=== PATIENT | female | born 1995 | race Caucasian/White ===

== ENCOUNTER 2016-09-13 15:19 | Emergency (ER) | payer OTHER ==
[~2016-09-13] VITALS: Wt 70.0 kg
[~2016-09-13 15:19] MED LIST: PRENAT PO
[2016-09-13] MEDS ORDERED: ALBUTEROL 0.5% (NEB) 2.5 MG/0.5 ML AMP HHN STA (16:19)
--- NOTE | 2016-09-13 16:28 | ERD ---
ER Documentation Chief Complaint Date/Time DATE: 09/13/16 TIME: 16:21 Chief Complaint SOB X 1 DAY HPI 21 y/o female presents to ED for shortness of breath for 1 day. Non-productive cough for about 4 days. Exposed to his 2-month-old baby boy who has cough and cold. Denies headache, loss of consciousness, dizziness, blurry vision, changes in vision, photophobia, facial pain, ear pain, throat pain, difficulty swallowing, neck pain, shoulder pain, chest pain, hemoptysis, abdominal pain, back pain, loss of appetite, nausea, vomiting, hematochezia, diarrhea, constipation, urinary symptoms, , the possibility of being , bladder and bowel incontinences, extremity weakness, extremity tenderness, numbness or tingling sensation, difficulty walking, recent travel, recent antibiotic use in the last 3 months, fever, chills. Allergy: NKA PMH: "Hypertension during the ." Family medical history: Denies AO LMP: "I am on it." Medications: Denies Surgery: Denies Primary Social History: Not working at this time. Occasionally drinks alcoholic beverages. Denies smoking, use of illegal drugs. ROS All systems reviewed and are negative except as per history of present illness. Medications Home Meds Active Scripts Albuterol Sulfate* (Proair HFA*) 8.5 Gm Hfa.aer.ad, 2 PUFF INH Q4 Y for SHORTNESS OF BREATH, #1 INHALER Prov:BISMARKGALINAKEVINJUANCARLOS Hair 09/13/16 Azithromycin* (Zithromax*) 250 Mg Tablet, 250 MG PO .ZPACK DIRECTED, #6 TAB TAKE 500 MG (2 TABS) THE FIRST DAY THEN 250 MG (1 TAB) DAYS 2-5 Prov:BISMARKGALINAKEVINJUANCARLOS F 09/13/16 Reported Medications Multivit/Min/Fol Ac/Iron/Pren* ( S*) Unknown Strength Tab, PO DAILY, TAB 12/24/15 Allergies Allergies: Coded Allergies: No Known Allergy (Unverified , 05/22/16) PMhx/Soc Denies Medical and Surgical Hx: pt denies Medical Hx, pt denies Surgical Hx Hx Alcohol Use: Yes Hx Substance Use: No Hx Tobacco Use: No FmHx Denies Physical Exam Vitals Vital Signs Date Time Temp Pulse Resp B/P Pulse Ox O2 Delivery O2 Flow Rate FiO2 1/22/17 18:10 98.4 125 18 134/86 100 Room Air 09/13/16 16:37 80 18 96 21 09/13/16 15:24 98.0 121 20 138/87 99 Physical Exam CONSTITUTIONAL: Well-appearing; well-nourished; in no apparent distress. HEAD: Normocephalic; atraumatic. EYES: Conjunctiva clear, sclera non-icteric, EOM intact. PERRL Ears: Hearing intact. EACs clear, TMs non-bulging, non-inflamed, translucent & mobile, ossicles normal appearance, No obstructions, no erythema, no discharges Nose: No obstructions. No polyps. No external lesions. Mucosa non-inflamed. No external lesions, septum and turbinates normal. No rhinorrhea. No discharges. Frontal sinus is non-tender to palpation. Maxillary sinus is non-tender to palpation. MOUTH: Moist mucous membranes, no lesion, no obstructions, no vesicles, no thrush, patent airway Throat: Uvula in midline. Right tonsil is +1 with no erythema, no exudate. Left tonsil is +1 with no erythema, no exudate. Tolerating secretions well. Good gag reflex. Patent airway. Neck: Supple, without lesions, bruits, or adenopathy. No mass. Thyroid non- enlarged and non-tender to palpation. CHEST: Symmetrical chest. Respirations even and not labored. No retractions noted. CARDIOVASCULAR: Normal S1, S2. RRR. No murmurs, gallops. RESPIRATORY: Normal chest excursion with respiration; breath sounds has mild wheezing bilaterally. No rhonchi. No rales. Breathing even and unlabored. Speaking in clear, full, and complete sentences w/ ease. ABDOMEN: Normal bowel sounds normal. Soft, round, non-distended, non-guarding, no tenderness, no rebound, no organomegaly, no masses, no pulsating abdominal mass. No hernia. No peritoneal signs. : No CVA tenderness. BACK: Symmetrical shoulder. Spine is midline without deformity, tenderness. No evidence of trauma or deformity. PELVIS: Stable pelvis. No evidence of trauma or deformity. MUSCULOSKELETAL: Normal gait and station. No misalignment, asymmetry, crepitation, defects, tenderness, masses, effusions, decreased range of motion, instability, atrophy or abnormal strength or tone in the head, neck, spine, ribs , pelvis or extremities. No calf tenderness. NEUROVASCULAR: Distal pulses are present. Pedal pulse are present, equal, and normal. Capillary refills are < 2 seconds. NEUROLOGIC: Alert and oriented x4. Speaks full and clear sentences. Cranial Nerves II-XII normal. Sensation to pain, touch, and proprioception normal. Grossly unremarkable. No neurologic deficits. Romberg test is negative. PSYCHOLOGICAL: The patients mood and manner are appropriate. No hallucinations , delusions. Not SI. Not HI. Has the capacity to decide for self SKIN: Normal for age and ethnicity; warm; dry; good turgor; no apparent lesions or exudates. No rashes, hives, discoloration. Intact. Results 24 hrs Current Medications Medications (Trade) Dose Ordered Sig/Margaret Route PRN Reason Start Time Stop Time Status Last Admin Dose Admin Albuterol (Proventil 0.5% (Neb)) 5 mg ONCE STAT HHN 09/13/16 16:19 09/13/16 16:21 DC 09/13/16 16:36 Ipratropium [place] 0.5 mg 0.5 mg ONCE ONCE HHN 09/13/16 16:30 09/13/16 16:31 DC 09/13/16 16:36 Sodium Chloride (NS) 1,000 ml @ 1,000 mls/hr Q1H ONCE IV 09/13/16 18:30 09/13/16 19:29 DC 09/13/16 18:41 Procedures/MDM Examination: Unremarkable examination except mild wheezing bilaterally. Disease process, medical treatment was explained to the patient and family member. They verbalized understanding and agreed with the medical treatment, and follow-up care. Treatment: Albuterol and Atrovent debilitation. IV insertion. Normal saline 1 L IV bolus as advised by Dr. Jaime Pollock. Re-evaluation: Tolerated the breathing treatment. Breathing even and unlabored. Speaks full sentences. Lung sounds are clear to auscultations. Consultation: None Differential diagnosis: Pneumonia versus shortness of breath versus bronchitis versus upper respiratory infection Medical decision makin21 y/o female presents to ED for shortness of breath for 1 day. Non-productive cough for about 4 days. Exposed to his 2-month-old baby boy who has cough and cold. No suspicious for pneumonia due to patient has no fever, oxygen saturation is normal, breathing is normal. My final diagnosis is bronchitis. Bronchitis consistent with the patient's complaint, symptoms, physical exam. Care was transferred to Dr. Jaime Pollock. Medications prescribed are the following: Azithromycin, ProAir air. Patient and family member are made aware of the side effects and adverse reactions of the medications prescribed. Instructed on when to seek emergent and medical attention in case allergic/anaphylactic reactions or severe side effects and or adverse reactions to medications. Patient and family member verbalized understanding. Patient instructed Instructed to follow-up with his PCP in 24-48 hours. Instructed to Call 911 for chest pain, shortness of breath. Advised to come back here in ED as soon as possible for severity of symptoms which includes but not limited to: any new symptoms; shortness of breath/difficulty of breathing; cardiovascular changes; severe gastrointestinal symptoms; signs and symptoms of bleeding and or infection; signs of compartment syndrome/neurovascular changes; neurological changes/deficits. Patient and family member verbalized understanding. Upon discharge, patient is alert and oriented x 4, speaks full and clear sentences, denies pain, has no neurological deficits, has no neurovascular deficits, difficulty of breathing. Breathing even and unlabored. Lung sounds are clear to auscultation. Not in distress. Appears comfortable. Ambulatory with steady gait. Appears satisfied with care provided here in ED. Departure Condition: Good Additional Instructions: Patient instructed Instructed to follow-up with his PCP in 24-48 hours. Instructed to Call 911 for chest pain, shortness of breath. Advised to come back here in ED as soon as possible for severity of symptoms which includes but not limited to: any new symptoms; shortness of breath/difficulty of breathing; cardiovascular changes; severe gastrointestinal symptoms; signs and symptoms of bleeding and or infection; signs of compartment syndrome/neurovascular changes; neurological changes/deficits. Patient and family member verbalized understanding. EMILE MONDRAGON Sep 13, 2016 16:28
[2016-09-13] MEDS ORDERED: AZIT250T94 PO (16:29)
[2016-09-13] MEDS ORDERED: IPRATROPIUM (NEB) 0.5 MG/2.5 ML AMP HHN ONE (16:30)
[2016-09-13] MEDS ORDERED: ALBU8.5H3 INH (16:30)
[2016-09-13] MEDS ORDERED: SOD CHLORIDE 0.9% 1,000 ML IV ONE (18:30)
[2016-09-13] MEDS ORDERED: PRED20TA PO (20:59)
--- NOTE | 2016-09-13 21:26 | EN ---
Date/Time of Note Date/Time of Note DATE: 09/13/16 TIME: 21:24 ER Progress Note This 21-year-old female was endorsed to me by the physician's veterinarian assistant. She had albuterol breathing treatment and had persistent tachycardia. Likely she was tachycardic originally from being short of breath that she did have an asthma exacerbation with wheezing. The albuterol also has a stimulant effect on the heart. Patient heart rate did decrease after a liter of normal saline. I also performed an EKG which was completely normal except for mild sinus tachycardia. I have very low suspicion for any acute heart abnormalities in this patient. She is being discharged with instructions to call [phone] if she experiences any further cardiac symptoms and primary care follow-up. She has been discharged with albuterol, prednisone EKG interpretation: Sinus tachycardia rate of 108, normal axis, normal intervals , no ST or T-wave changes concerning for acute ischemia. Normal EKG except for rate patient monitor interpretation: Mild sinus tachycardia resolved with IV fluids. NEEMA ALLAN DO Sep 13, 2016 21:26
[2016-09-13 21:28] VITALS: BP 128/84; PULSE 111; RESP 18; TEMP 99
== END 2016-09-13 21:39 | disposition home or self-care (01) ==
LOC: FTE 15:19
DX: J20.9 Acute bronchitis, unspecified (principal)
CPT/HCPCS: 93005; 94664; J7030; Z7610

== ENCOUNTER 2017-07-09 03:24 | Emergency (ER) | payer OTHER ==
[~2017-07-09] VITALS: Ht 154.9 cm; Wt 66.0 kg
[~2017-07-09 03:24] MED LIST changes: +ALBU8.5H3 INH; +AZIT250T94 PO; +PRED20TA PO
[2017-07-09 03:27] VITALS: Ht 154.9 cm; Wt 66.0 kg
[2017-07-09] MEDS ORDERED: ALPRAZOLAM 0.25 MG TAB PO ONE (04:00)
--- NOTE | 2017-07-09 04:09 | ERD ---
ER Documentation Chief Complaint Chief Complaint intermittent CP, non-provoked, squeezing, radiates to left arm, lasts 2 min HPI 22-year-old female presents here to emergency department for complaints of mid chest pain that started yesterday. Patient describes the pain as sharp pain, intermittent pain, not better or worse with anything. It radiates into the left arm and caused palpitations at times. Patient does admit to being stressed at home, feeling anxious at times. Patient denies any dyspnea on exertion or dyspnea on lying donw, denies any dizziness. ROS All systems reviewed and are negative except as per history of present illness. Medications Home Meds Active Scripts Prednisone* (Prednisone*) 20 Mg Tab, 40 MG PO DAILY for 4 Days, TAB Prov:JERRELLNEEMA 09/13/16 Albuterol Sulfate* (Proair HFA*) 8.5 Gm Hfa.aer.ad, 2 PUFF INH Q4 Y for SHORTNESS OF BREATH, #1 INHALER Prov:EMILE MONDRAGON 09/13/16 Azithromycin* (Zithromax*) 250 Mg Tablet, 250 MG PO .ZPACK DIRECTED, #6 TAB TAKE 500 MG (2 TABS) THE FIRST DAY THEN 250 MG (1 TAB) DAYS 2-5 Prov:EMILE MONDRAGON 09/13/16 Reported Medications Multivit/Min/Fol Ac/Iron/Pren* ( S*) Unknown Strength Tab, PO DAILY, TAB 12/24/15 Allergies Allergies: Coded Allergies: No Known Allergy (Unverified , 05/22/16) PMhx/Soc Medical and Surgical Hx: pt denies Medical Hx, pt denies Surgical Hx Hx Alcohol Use: Yes Hx Substance Use: No Hx Tobacco Use: No Smoking Status: Never smoker FmHx Family History: No coronary disease, No diabetes, No other Physical Exam Vitals Vital Signs Date Time Temp Pulse Resp B/P Pulse Ox O2 Delivery O2 Flow Rate FiO2 07/09/17 03:27 98.1 107 18 128/80 99 Physical Exam Const: [] Head: Atraumatic Eyes: Normal Conjunctiva ENT: Normal External Ears, Nose and Mouth. Neck: Full range of motion..~ No meningismus. Resp: Clear to auscultation bilaterally Cardio: Regular rate and rhythm, no murmurs Abd: Soft, non tender, non distended. Normal bowel sounds Skin: No petechiae or rashes Back: No midline or flank tenderness Ext: No cyanosis, or edema Neur: Awake and alert Psych: Normal Mood and Affect Results 24 hrs Current Medications Medications (Trade) Dose Ordered Sig/Margaret Route PRN Reason Start Time Stop Time Status Last Admin Dose Admin Alprazolam (Xanax) 0.5 mg ONCE ONCE PO 07/09/17 04:00 07/09/17 04:01 DC 07/09/17 03:59 Xanax was given here in emergency department. Verbalized feeling much better afterwards. EKG was done, read by me and is sinus tachycardia at 114 bpm, normal axis, there is no ST changes or changes in the EKG that indicates any cardiac emergencies at this time. Patient's EKG was also reviewed by Dr. Holland. Impression: no acute findings on EKG PROCEDURE: CHEST - 1 VIEW CLINICAL INDICATION: 22-year-old female with chest pain. TECHNIQUE: A single frontal AP semi-erect portable view of the chest was performed. The images were reviewed on a PACS workstation. COMPARISON: None. FINDINGS: The cardiomediastinal silhouette has a normal appearance. There is no evidence for an infiltrate. The pulmonary vascularity is within normal limits. There is no evidence for pneumothorax or pneumomediastinum. The osseous structures are intact. IMPRESSION: No evidence for active cardiopulmonary disease. .Ruddy Adler MD, Date Time Electronically viewed and signed by .Ruddy Adler MD, on 07/09/2017 04:14 .M/ CC: ELVIS ACOSTA NP Procedures/MDM Medical Decision Making: Symptoms of chest pain may be related to anxiety. Heart rate is more controlled after giving Xanax here in the emergency department. There is low suspicion for cardiopulmonary emergencies at this time. Patient has low risk factors. EKG is normal, there is no changes in the EKG that indicates cardiac emergencies. Chest X-ray does not show cardiopulmonary emergencies at this time. There is low suspicion for aortic aneurysm, myocardial infarction, pneumothorax, pleural effusion, pulmonary embolism, or any other cardiopulmonary emergencies at this time. Patient was given Xanax to help with anxiety, is advised to follow-up with primary care doctor in 1-2 days for reevaluation of symptoms. Patient was advised to return to emergency department for any worsening symptoms. Dispostion: Home. Stable Disclaimer: Inadvertent spelling and grammatical errors are likely due to EHR/ dictation software use and do not reflect on the overall quality of patient care. Also, please note that the electronic time recorded on this note does not necessarily reflect the actual time of the patient encounter. Departure Diagnosis: Primary Impression: Atypical chest pain Condition: Stable Patient Instructions: Chest Pain, Uncertain Cause ELVIS ACOSTA NP Jul 09, 2017 04:09
--- NOTE | 2017-07-09 04:15 | RADRPT ---
PROCEDURE: CHEST - 1 VIEW CLINICAL INDICATION: 22-year-old female with chest pain. TECHNIQUE: A single frontal AP semi-erect portable view of the chest was performed. The images we re reviewed on a PACS workstation. COMPARISON: None. FINDINGS: The cardiomediastinal silhouette has a normal appearance. There is no evidence for an infiltrate. T he pulmonary vascularity is within normal limits. There is no evidence for pneumothorax or pneumomed iastinum. The osseous structures are intact. IMPRESSION: No evidence for active cardiopulmonary disease. .Ruddy Adler MD, MD Date Time Electronically viewed and signed by .Ruddy Adler MD, on 07/09/2017 04:14 .M/
[2017-07-09] MEDS ORDERED: ALPR0.25 PO (04:31)
[2017-07-09 04:38] VITALS: BP 124/88; PULSE 92; RESP 18; TEMP 97.6
== END 2017-07-09 04:39 | disposition home or self-care (01) ==
LOC: FTE 03:24
DX: R07.89 Other chest pain (principal)
CPT/HCPCS: 71010; Z7502; Z7610; 93005

== ENCOUNTER 2018-08-01 12:01 | Emergency (ER) | END 2018-08-01 14:42 | disposition home or self-care (01) ==

== ENCOUNTER 2019-04-10 19:21 | Outpatient (CLI) | payer OTHER ==
[~2019-04-10] VITALS: Ht 154.9 cm; Wt 78.0 kg
[~2019-04-10 19:21] MED LIST changes: +ACET500C5 PO; -ALBU8.5H3 INH; +ALBU8.5H8 INH; +ALPR0.25 PO; +AZIT250T PO; -AZIT250T94 PO; +CEPH-443 PO; +IBUP-1542 PO; +ONDA4TAB14 PO; +PNV11TAB PO; +PREN-93 PO; +URSO250T10 PO
[2019-04-10 19:34] VITALS: BP 94/56; PULSE 83; RESP 18; Ht 154.9 cm; Wt 78.0 kg
== END 2019-04-10 22:21 | disposition home or self-care (01) ==
LOC: OBT 19:21 → L-D 19:22 → OBT 22:21
PROVIDERS: ATTEND Obstetrics & Gynecology
DX: O26.893 Other specified pregnancy related conditions, third trimester (principal); L29.9 Pruritus, unspecified; O24.410 Gestational diabetes mellitus in pregnancy, diet controlled; Z3A.33 33 weeks gestation of pregnancy
CPT/HCPCS: 76818; 80053; 82962; Z7500; G0463

== ENCOUNTER 2019-04-11 14:56 | Outpatient (CLI) | payer OTHER ==
[~2019-04-11] VITALS: Ht 154.9 cm; Wt 78.2 kg
[~2019-04-11 14:56] MED LIST changes: -ALPR0.25 PO; -AZIT250T PO; -IBUP-1542 PO; -ONDA4TAB14 PO; -PRED20TA PO; -PREN-93 PO
[2019-04-11 15:17] VITALS: Ht 154.9 cm; Wt 78.2 kg
[2019-04-11] MEDS ORDERED: LACTATED RINGER'S 1,000 ML IV SCH (18:00)
== END 2019-04-11 18:45 | disposition home or self-care (01) ==
LOC: OBT 14:56 → L-D 14:57 → OBT 18:45
PROVIDERS: ATTEND Obstetrics & Gynecology
DX: O46.8X3 Other antepartum hemorrhage, third trimester (principal); Z3A.33 33 weeks gestation of pregnancy
CPT/HCPCS: 36415; 76817; 76818; 81001; J7120; Z7500; G0463

== ENCOUNTER 2019-04-13 13:17 | Outpatient (CLI) | payer OTHER ==
[~2019-04-13] VITALS: Ht 154.9 cm; Wt 77.6 kg
[2019-04-13 14:19] VITALS: BP 121/75; PULSE 71; RESP 18; Ht 154.9 cm; Wt 77.6 kg
== END 2019-04-13 15:30 | disposition home or self-care (01) ==
LOC: OBT 13:17 → L-D 13:19 → OBT 15:30
PROVIDERS: ATTEND Obstetrics & Gynecology
DX: O26.893 Other specified pregnancy related conditions, third trimester (principal); L29.9 Pruritus, unspecified; Z3A.34 34 weeks gestation of pregnancy
CPT/HCPCS: 76818; Z7500; G0463

== ENCOUNTER 2019-04-17 18:06 | Outpatient (CLI) | payer OTHER ==
[~2019-04-17] VITALS: Ht 154.9 cm; Wt 77.0 kg
[~2019-04-17 18:06] MED LIST changes: -ALBU8.5H8 INH
[2019-04-17 20:16] VITALS: BP 119/80; PULSE 76; RESP 18; Ht 154.9 cm; Wt 77.0 kg
== END 2019-04-18 00:45 | disposition home or self-care (01) ==
LOC: OBT 18:06 → L-D 18:07 → OBT 04-18 00:45
PROVIDERS: ATTEND Obstetrics & Gynecology
DX: O26.613 Liver and biliary tract disorders in pregnancy, third trimester (principal); K83.1 Obstruction of bile duct; Z3A.34 34 weeks gestation of pregnancy
CPT/HCPCS: 76818; 80053; 81003; 84560; 85025; Z7500; G0463

== ENCOUNTER 2019-04-19 20:11 | Inpatient (IN) | payer OTHER ==
[~2019-04-19] VITALS: Ht 154.9 cm; Wt 76.6 kg
[2019-04-19 22:11] VITALS: BP 117/69; PULSE 68; RESP 15
[2019-04-20] MEDS ORDERED: AL HYDROX/MG HYDROX/SIMETH 30 ML CUP PO PRN ×2 (03:00→05:30)
[2019-04-20] MEDS ORDERED: ACETAMINOPHEN 325 MG TAB PO PRN (03:00)
[2019-04-20] MEDS ORDERED: DEXTROSE 50% 50 ML SYRINGE IV PRN ×2 (05:30)
[2019-04-20] MEDS ORDERED: GLUCAGON 1 MG INJ IM PRN (05:30)
[2019-04-20] MEDS ORDERED: GLUCOSE GEL 15 GRAM TUBE BUCCAL PRN (05:30)
[2019-04-20] MEDS ORDERED: GLUCOSE GEL 15 GRAM TUBE PO PRN ×2 (05:30)
[2019-04-20] MEDS: BETAMET NA PHOS/AC(6 MG/ML) 2 ML INJ SYG IM SCH ×2 (05:36→17:36)
[2019-04-20] MEDS: ACCU-CHEK XX SCH ×4 (07:30→21:03)
[2019-04-20] MEDS ORDERED: FERROUS SULFATE (EC) 325 MG TAB PO SCH (09:00)
[2019-04-20] MEDS ORDERED: PRENATAL VITAMIN PO SCH (09:00)
[2019-04-20] MEDS: URSODIOL 250 MG TAB PO SCH ×2 (09:03→21:01)
[2019-04-20] MEDS ORDERED: OXYTOCIN 30 UNITS/LR 500 ML IV SCH ×2 (12:30)
[2019-04-20] MEDS ORDERED: BUTORPHANOL 2 MG INJ IV PRN (12:30)
[2019-04-20] MEDS ORDERED: CARBOPROST 250 MCG INJ IM PRN (12:30)
[2019-04-20] MEDS ORDERED: LIDOCAINE 1% (MPF) 30 ML INJ INJ PRN (12:30)
[2019-04-20] MEDS ORDERED: AMPICILLIN 2 GM/NS (PMX) 100 ML IV ONE (12:30)
[2019-04-20] MEDS ORDERED: METHYLERGONOVINE 0.2 MG INJ IM PRN (12:30)
[2019-04-20] MEDS ORDERED: MISOPROSTOL 200 MCG TAB PR PRN (12:30)
[2019-04-20] MEDS ORDERED: OXYTOCIN 30 UNITS/LR 500 ML IV PRN (12:30)
[2019-04-20] MEDS: LACTATED RINGER'S 1,000 ML IV SCH ×2 (12:40→18:48)
[2019-04-20] MEDS: MISOPROSTOL 50 MCG CAPSULE PO SCH ×3 (14:57→19:49)
[2019-04-20] MEDS: AMPICILLIN 1 GM/NS (PMX) 50 ML IV SCH ×2 (16:30→19:50)
[2019-04-20 19:45] VITALS: BP 126/73; PULSE 61; RESP 18
[2019-04-21] MEDS: AMPICILLIN 1 GM/NS (PMX) 50 ML IV SCH ×4 (00:31→12:30)
[2019-04-21] MEDS: MISOPROSTOL 50 MCG CAPSULE PO SCH (00:31)
[2019-04-21] MEDS: LACTATED RINGER'S 1,000 ML IV SCH ×2 (02:25→03:24)
[2019-04-21] MEDS ORDERED: DIPHENHYDRAMINE 50 MG INJ IV PRN (04:30)
[2019-04-21] MEDS ORDERED: NALOXONE (0.4 MG/ML) INJ IV PRN (04:30)
[2019-04-21] MEDS ORDERED: ONDANSETRON 4 MG INJ IV PRN (04:30)
[2019-04-21] MEDS ORDERED: FENTAnyl 2MCG/ML-ROPIV 0.2% 100 ML BAG EPI SCH (04:30)
[2019-04-21] MEDS ORDERED: KETOROLAC 30 MG INJ IV PRN (04:30)
[2019-04-21] MEDS ORDERED: HYDROmorphONE 0.5 MG/0.5 ML SYG IV PRN ×2 (04:30)
[2019-04-21] MEDS ORDERED: TERBUTALINE 1 MG/ML INJ SC ONE (06:00)
[2019-04-21] MEDS: ACCU-CHEK XX SCH (06:00)
[2019-04-21] MEDS: URSODIOL 250 MG TAB PO SCH (09:00)
[2019-04-21 12:25] VITALS: BP 125/76; PULSE 68; RESP 18
[2019-04-21] MEDS ORDERED: HYDROCODONE/APAP (5/325) TAB PO PRN (13:00)
[2019-04-21] MEDS ORDERED: CARBOPROST 250 MCG INJ IM PRN (13:00)
[2019-04-21] MEDS ORDERED: MISOPROSTOL 200 MCG TAB PR PRN (13:00)
[2019-04-21] MEDS ORDERED: DIBUCAINE 1% 30 GM OINT TOP PRN (13:00)
[2019-04-21] MEDS ORDERED: ACETAMINOPHEN 325 MG TAB PO PRN (13:00)
[2019-04-21] MEDS ORDERED: OXYTOCIN 30 UNITS/LR 500 ML IV PRN (13:00)
[2019-04-21] MEDS: LACTATED RINGER'S 1,000 ML IV* SCH ×2 (14:50→20:34)
[2019-04-21] MEDS: WITCH HAZEL/GLYCERIN PAD PR PRN (17:44)
[2019-04-21] MEDS: BENZOCAINE 20% 56 ML SPRAY TOP PRN (17:45)
[2019-04-21] MEDS: IBUPROFEN 600 MG TAB PO SCH (17:45)
[2019-04-21 18:05] VITALS: BP 131/83; PULSE 60; RESP 18
[2019-04-21 19:45] VITALS: BP 126/73; PULSE 61; RESP 18
[2019-04-22] VITALS: BP 116/80; PULSE 65; RESP 18
[2019-04-22] MEDS: SENNA/DOCUSATE NA (8.6MG/50MG) TAB PO SCH ×3 (00:12→22:11)
[2019-04-22] MEDS: IBUPROFEN 600 MG TAB PO SCH ×5 (00:13→23:38)
[2019-04-22 04:15] VITALS: BP 111/84; PULSE 57; RESP 18
[2019-04-22] MEDS: LACTATED RINGER'S 1,000 ML IV* SCH (04:34)
[2019-04-22 07:50] VITALS: BP 116/67; PULSE 61; RESP 17
[2019-04-22 15:51] VITALS: BP 114/78; PULSE 73; RESP 16
[2019-04-22 20:40] VITALS: BP 123/81; PULSE 80; RESP 18
[2019-04-23 04:15] VITALS: BP 130/92; PULSE 63; RESP 18
[2019-04-23] MEDS: IBUPROFEN 600 MG TAB PO SCH ×3 (07:28→18:03)
[2019-04-23 08:15] VITALS: BP 122/83; PULSE 85; RESP 17
[2019-04-23] MEDS ORDERED: DIPHTH/TET/ACEL PERTUSS (ADULT) 0.5 ML VIAL IM* ONE (09:00)
[2019-04-23] MEDS: SENNA/DOCUSATE NA (8.6MG/50MG) TAB PO SCH ×2 (09:23→21:08)
[2019-04-23 16:00] VITALS: BP 129/83; PULSE 66; RESP 16
[2019-04-23 20:00] VITALS: BP 129/83; PULSE 87; RESP 18
[2019-04-24] VITALS (9 sets, daily range): BP systolic 114–125; BP diastolic 64–87; PULSE 62–86; RESP 18–20
[2019-04-24] MEDS: IBUPROFEN 600 MG TAB PO SCH ×4 (06:00→17:40)
[2019-04-24] MEDS: SENNA/DOCUSATE NA (8.6MG/50MG) TAB PO SCH ×2 (09:00→21:00)
[2019-04-25] VITALS: BP 127/84; PULSE 65
[2019-04-25 04:00] VITALS: BP 123/90; PULSE 64; RESP 18
[2019-04-25 05:00] VITALS: BP 104/62; PULSE 60
[2019-04-25] MEDS: IBUPROFEN 600 MG TAB PO SCH ×4 (06:00→18:18)
[2019-04-25 08:15] VITALS: BP 125/81; PULSE 92; RESP 18
[2019-04-25] MEDS: SENNA/DOCUSATE NA (8.6MG/50MG) TAB PO SCH (09:02)
[2019-04-25] MEDS ORDERED: DIPHTH/TET/ACEL PERTUSS (ADULT) 0.5 ML VIAL IM* ONE (12:40)
[2019-04-25 17:11] VITALS: BP 113/76; PULSE 82; RESP 18
[2019-04-25] MEDS: WITCH HAZEL/GLYCERIN PAD PR PRN (20:14)
[2019-04-25] MEDS: BENZOCAINE 20% 56 ML SPRAY TOP PRN (20:14)
== END 2019-04-25 20:40 | disposition home or self-care (01) | DRG 807 ==
LOC: OBT 20:11 → L-D 20:13 → OBT 04-20 02:40 → L-D 04-20 12:00 → PP1 04-21 12:09
PROVIDERS: ADMIT Obstetrics & Gynecology; ATTEND Obstetrics & Gynecology
PROC: 10E0XZZ Delivery of Products of Conception, External Approach (ICD-10-PCS; principal; 2019-04-21)
PROC: 0KQM0ZZ Repair Perineum Muscle, Open Approach (ICD-10-PCS; 2019-04-21)
DX: O60.13X0 Preterm labor second trimester with preterm delivery third trimester, not applicable or unspecified (principal); O70.1 Second degree perineal laceration during delivery; Z3A.35 35 weeks gestation of pregnancy; Z37.0 Single live birth
CPT/HCPCS: 62322; 76815; 76818; 80053; 82565; 82575; 82962; 83036; 84156; 84560; 85025; 85610; 85730; 86592; 86850; 86900; 86901; 88307; 90715; 99464; G0463; J0290; J0702; J2590; J3010; J3105; J7120

== ENCOUNTER 2019-04-27 23:53 | Emergency (ER) | payer OTHER ==
[~2019-04-27] VITALS: Ht 154.9 cm; Wt 68.1 kg
[2019-04-27 23:57] VITALS: Ht 154.9 cm; Wt 68.1 kg
[2019-04-28 03:12] VITALS: BP 129/80; PULSE 84; RESP 18
== END 2019-04-28 04:02 | disposition home or self-care (01) ==
LOC: FTE 23:53
DX: O10.03 Pre-existing essential hypertension complicating the puerperium (principal); O86.22 Infection of bladder following delivery; B96.89 Other specified bacterial agents as the cause of diseases classified elsewhere
CPT/HCPCS: 80053; 81001; 85025; Z7502; 99283